=== PATIENT | female | born 1955 | race African-American/Black ===

== ENCOUNTER 2017-03-05 22:25 | Emergency (ER) | payer MEDICAID, OTHER ==
[~2017-03-05] VITALS: Ht 152.4 cm; Wt 73.0 kg
[~2017-03-05 22:25] MED LIST: ACET-2708; AMLO10TA4 PO; ATEN50TA PO; BENA40TA3 PO; CYCL10TA7 PO; DEXT1DRO3; DORZ10DR9; ERYT-111 PO; HYDROCHLOROTHIAZIDE; LATA2.5D2; TRAV5DRO4
[2017-03-05] MEDS ORDERED: SODIUM CHLORIDE 0.9% 1,000 ML IV ONE (22:56)
[2017-03-05] MEDS ORDERED: METOCLOPRAMIDE HCL 10MG/2ML VIAL IV ONE (23:00)
[2017-03-05 23:14] LABS: BASOPHILS % 0.2 % (0.0-2.0); EOSINOPHILS % 0.5 % (0.0-5.0); HEMATOCRIT. 36.2 % (36.0-48.0); HEMOGLOBIN. 12.3 g/dL (12.0-16.0); LYMPHOCYTES % 36.5 % (20.0-50.0); MEAN CORPUSCULAR HEMOGLOBIN 30.6 pg (28.0-32.0); MEAN CORPUSCULAR VOLUME 90.3 fL (81.0-99.0); MEAN PLATELET VOLUME 11.7 fl (7.4-10.4); MONOCYTES % 8.4 % (2.0-8.0); NEUTROPHILS % 54.4 % (40.0-76.0); PLATELET 137 x1000/uL (130-400); RED BLOOD CELL COUNT 4.01 mill/uL (4.2-5.4); RED CELL DISTRIBUTION WIDTH 13.2 % (11.6-14.6)
[2017-03-05 23:18] LABS: CHLORIDE 107 mEq/L (98-107)
[2017-03-05 23:29] LABS: CARBON DIOXIDE 25 mEq/L (21-32)
[2017-03-05 23:30] LABS: TROPONIN I < 0.02 ng/mL (0.00-0.04)
[2017-03-06] MEDS ORDERED: POTASSIUM CHLORIDE 20MEQ TABLET SR PO ONE
[2017-03-06] MEDS ORDERED: HYDROCODONE/ACETAMINOPHEN 5/325MG TABLET PO ONE
[2017-03-06] MEDS ORDERED: POTASSIUM CHLORIDE 20MEQ/PACKET PO SCH (00:15)
[2017-03-06 03:07] VITALS: BP 117/74
== END 2017-03-06 03:50 | disposition home or self-care (01) ==
LOC: ER 22:51
DX: R13.10 Dysphagia, unspecified (principal); R05 Cough; I10 Essential (primary) hypertension; Z88.0 Allergy status to penicillin; Z98.890 Other specified postprocedural states
CPT/HCPCS: 36415; 71010; 80053; 83690; 84484; 85025; 93005; 96361; 96374; 99285; J2765; J7030; Z7610

== ENCOUNTER → 2019-04-14 | Outpatient (CLI) | payer MEDICARE, MEDICAID ==
[~2019-04-14] MED LIST changes: +BARIUM SULFATE 176 GM SUSP.RECON ONE; -BENA40TA3 PO; +BENA40TA9 PO; +EZ-HD SUSPENSION(BARIUM SULFATE 340GM) PO ONE
== END | disposition home or self-care (01) ==
LOC: RAD 10:15
PROVIDERS: ATTEND Internal Medicine Gastroenterology
DX: R13.10 Dysphagia, unspecified (principal)
CPT/HCPCS: 74220

== ENCOUNTER → 2020-09-12 | Outpatient (CLI) | payer MEDICARE, MEDICAID ==
[~2020-09-12] MED LIST changes: -BARIUM SULFATE 176 GM SUSP.RECON ONE; +BARIUM SULFATE 450ML ORAL SUSP ONE; -EZ-HD SUSPENSION(BARIUM SULFATE 340GM) PO ONE; +LATA2.5D14; -LATA2.5D2
== END | disposition home or self-care (01) ==
LOC: CT 07:32
PROVIDERS: ATTEND Internal Medicine Gastroenterology
DX: K57.30 Diverticulosis of large intestine without perforation or abscess without bleeding (principal); R10.9 Unspecified abdominal pain; K22.8 Other specified diseases of esophagus; Z90.49 Acquired absence of other specified parts of digestive tract
CPT/HCPCS: 71250; 74176